=== PATIENT | male | born 1950 | race Caucasian/White ===

== ENCOUNTER 2021-02-20 21:41 | Emergency (ER) | payer OTHER, MEDICARE ==
--- OUTSIDE RECORDS SUMMARY | 2021-02-20 21:44 | XMS REPORT | Continuity of Care Document ---
:1950 Author Organization [facility] t Address [address] [place] [address] Care Team Providers Name Role Phone Sharpless Primary Care Physician Doctor Unassigned, Name Attending Clinician Unavailable Gabby Kirkland MD Attending Clinician Problems Condition Condition Condition Status Onset Resolution Last Treating Co mments Source Name Details Category Date Date Treatment Clinician Date SIRS SIRS Disease Active [facility]system[facility] inflammato inflammato 00:00: Me dical ry ry 00 Center response response syndrome) syndrome) Bandemia Bandemia Disease [facility] Oropharyng Oropharyng Disease Active [facility] - dysphagia dysphagia 00:00: Medi bora 00 Center Submandibu Submandibu Disease Active [facility] lar 03[facility] - abscess abscess [facility] Medical 00 Center Sore Sore Disease Active [facility] throat throat 03-21 [facility] Mass of Mass of Disease Active [facility] right right 03-21 [facility] - submandibu submandibu 00:00: Me dical lar region lar region 00 Ce nter Allergies, Adverse Reactions, Alerts This patient has no known allergies or adverse reactions. Social History Social Habit Start Date Stop Date Quantity Comments Source Sex Assigned At [facility] Cigarettes smoked 2016-03-22 2016-03-22 [facility] - current (pack per 00:00:00 00:00:00 Medical Center day) - Reported Cigarette 2016-03-22 2016-03-[address] [facility] - pack-[facility] 00:00:00 00:[facility]:00 [facility] Center Alcohol intake 2016-03-22 2016-03-22 [facility] (finding) Smoking Status Start Date Stop Date Source Current every day smoker 2016-03-22 00:00:00 [facility] Medications Ordered Filled Start Stop Current Ordering Indication Dosage Frequency Signature Comments Components Source Medication Medication Date Date Medication? Clinician (SIG) Name Name morphine Yes 15mg [id number] Take [address] [facility] (MSIR) 15 8-14 [id number] by mouth 3 [facility] - MG tablet 15:30: 3D (three) Medic al 46 times Center daily. Procedures This patient has no known procedures. Encounters Start End Encounter Admission Attending Care Care Encounter Source Date/Time Date/Time Type Type Clinicians Facility Department ID 2020-06-15 2020-06-15 Orders Doctor ANDERSON [id number] 00:00:00 00:00:00 Only Unassigned, JANET [id number] [place] [facility] [id number] 2020-06-03 2020-06-03 Office GREG Kirkland [id number] 09:57:34 10:26:27 Visit [facility] [id number] Surgical [id number] Specialti [id number] 198 [place] 2020-06-03 2020-06-03 Orders Doctor ANDERSON [id number] 00:00:00 00:00:00 Only Unassigned, JANET [id number] [place] [facility] [id number] Results This patient has no known results.
[2021-02-20] MEDS ORDERED: MORPHINE 4 MG/ML SYR ONE (23:31)
[2021-02-20] MEDS ORDERED: ONDANSETRON 4 MG/2 ML VIAL ONE (23:32)
[2021-02-20 23:54] LABS: Absolute Lymphocytes (CBC) 1.9 K/uL (0.7-4.9); Basophils % 0.7 % (0-1.3); Hematocrit 42.6 % (39.6-49.0); Lymphocytes % 16.1 % (15.3-44.8); MPV 10.3 fL (7.6-11.3); RBC Red Blood Cell Count 4.64 M/uL (4.33-5.43)
[2021-02-20 23:57] LABS: Protime INR 1.02
[2021-02-21 00:04] LABS: ALT/SGPT 26 U/L (12-78); AST/SGOT 23 U/L (15-37); Alkaline Phosphatase 91 U/L (45-117); BUN Blood Urea Nitrogen 9 mg/dL (7-18); Bicarbonate 30 mmol/L (21-32); Bilirubin Direct < 0.1 mg/dL (0-0.2); Bilirubin Total 0.4 mg/dL (0.2-1.0); Glucose Level 94 mg/dL (74-106); Potassium 3.9 mmol/L (3.5-5.1); Protein, Total 7.9 g/dL (6.4-8.2); Sodium Level 139 mmol/L (136-145)
--- NOTE | 2021-02-21 00:35 | ER ---
Nurse's Notes [facility] Name: Douglas Avina Age: 71 yrs Sex: Male : 1950 Arrival Date: 02/20/2021 Time: 21:43 Bed 16 Private MD: Diagnosis: Radiculopathy, cervical region;Cervical Degenerative Disease Presentation: 02/20 21:54 Chief complaint: Patient states: Had injury to my neck 4 months ago, my neck has always ca1 been hurting but not this bad. 3 days [employer], the pain has just been worse and I can't move my neck. Coronavirus screen: Client denies travel out of the [place] in the last 14 days. At this time, the client does not indicate any symptoms associated with coronavirus-19. Ebola Screen: Patient negative for fever greater than or equal to 101.5 degrees Fahrenheit, and additional compatible Ebola Virus Disease symptoms Patient denies exposure to infectious person. Patient denies travel to an Ebola-affected area in the 21 days before illness onset. No symptoms or risks identified at this time. Acute neurological deficit: none identified. Initial Sepsis Screen: Does the patient meet any 2 criteria? No. Patient's initial sepsis screen is negative. Does the patient have a suspected source of infection? No. Patient's initial sepsis screen is negative. Risk Assessment: Do you want to hurt yourself or someone else? Patient reports no desire to harm self or others. Onset of symptoms was February 20, 2021. 21:54 Method Of Arrival: Wheelchair ca1 21:54 Acuity: DARION 3 ca1 Historical: - Allergies: 21:57 No Known Allergies; ca1 - PMHx: 21:57 None; ca1 - Immunization history:: Client reports having NOT received the Covid vaccine. Flu vaccine is not up to date. - Social history:: Smoking status: Patient reports the use of cigarette tobacco products, smokes one pack cigarettes per day. Screenin:00 Abuse screen: Denies threats or abuse. Nutritional screening: No deficits noted. jb4 Tuberculosis screening: No symptoms or risk factors identified. Fall Risk None identified. Assessment: 22:50 General: Appears in no apparent distress. uncomfortable, Behavior is calm, cooperative, jb4 appropriate for age. Pain: Complains of pain in neck Pain does not radiate. Pain currently is 10 out of 10 on a pain scale. Neuro: Level of Consciousness is awake, alert, obeys commands, Oriented to person, place, time, situation. Cardiovascular: Patient's skin is warm and dry. Respiratory: Airway is patent Respiratory effort is even, unlabored, Respiratory pattern is regular, symmetrical. GI: No signs and/or symptoms were reported involving the gastrointestinal system. : No signs and/or symptoms were reported regarding the genitourinary system. EENT: No signs and/or symptoms were reported regarding the EENT system. Derm: Skin is intact, Skin is pink, warm \T\ dry. Musculoskeletal: Circulation, motion, and sensation intact. Range of motion: intact in all extremities. 02/21 00:00 Reassessment: Patient appears in no apparent distress at this time. Patient and/or jb4 family updated on plan of care and expected duration. Pain level reassessed. Patient is alert, oriented x 3, equal unlabored respirations, skin warm/dry/pink. 01:00 Reassessment: Patient appears in no apparent distress at this time. Patient and/or jb4 family updated on plan of care and expected duration. Pain level reassessed. Patient is alert, oriented x 3, equal unlabored respirations, skin warm/dry/pink. Vital Signs: 02/20 21:54 BP 174 / 90; Pulse 85; Resp 16 S; Temp 99.1(TE); Pulse Ox 96% on R/A; Weight 72.57 kg ca1 (R); Height 5 ft. 10 in. (177.80 cm) (R); Pain 9/10; 02/21 01:18 BP 151 / 92; Pulse 87; Resp 18; Pulse Ox 97% on R/A; jb4 02/20 21:54 Body Mass Index 22.96 (72.57 kg, 177.80 cm) ca1 ED Course: 02/20 21:43 Patient arrived in ED. es 21:56 Triage completed. ca1 21:57 Arm band placed on right wrist. ca1 22:27 Cleve Bennett MD is Attending Physician. mh7 23:00 Patient has correct armband on for positive identification. Bed in low position. Call jb4 light in reach. Side rails up X 1. Pulse ox on. NIBP on. 23:01 Douglas English RN is Primary Nurse. jb4 23:15 Initial lab(s) drawn, by me, sent to lab. Inserted saline lock: 18 gauge in left jb4 antecubital area, using aseptic technique. Blood collected. 23:41 CT C Spine In Process Unspecified. EDMS 02/21 00:32 Douglas Louie MD is Referral Physician. 7 01:19 No provider procedures requiring assistance completed. IV discontinued, intact, jb4 bleeding controlled, No redness/swelling at site. Administered Medications: 02/20 23:15 Drug: Zofran (Ondansetron) 4 mg Route: IVP; Site: left antecubital; jb4 23:45 Follow up: Response: No adverse reaction jb4 23:17 Drug: morphine 4 mg Route: IVP; Site: left antecubital; jb4 23:45 Follow up: Response: No adverse reaction; Marked relief of symptoms; Pain is decreased; [facility] RASS: Alert and Calm (0) Outcome: 02/21 00:35 Discharge ordered by . [facility] 01:20 Discharged to home via wheelchair, with family. [facility] 01:20 Condition: stable 01:20 Discharge instructions given to patient, Instructed on discharge instructions, follow up and referral plans. medication usage, Demonstrated understanding of instructions, follow-up care, medications, Prescriptions given X 1. 01:20 Patient left the ED. [facility] Signatures: Dispatcher [employer] Irma Heard James, RN RN [facility] Sanam Wong RN RN ca1 Holmes, Maurice, MD MD 7 Corrections: (The following items were deleted from the chart) 01:19 01:18 Abuse screen: Denies threats or abuse. [place] [id number] 19 01:18 Nutritional screening: No deficits noted. [place] [id number] 19 01:18 Tuberculosis screening: No symptoms or risk factors identified. [place] [id number] :19 01:18 Fall Risk None identified. [place] [id number]
--- NOTE | 2021-02-21 00:36 | EDPHYS ---
Physician Documentation [facility] Name: Douglas Avina Age: 71 yrs Sex: Male : 1950 Arrival Date: 02/20/2021 Time: 21:43 Bed 16 Private MD: ED Physician Cleve Bennett HPI: 02/20 22:20 This 71 yrs old Male presents to ER via Wheelchair with complaints of Neck mh7 Pain, <24hrs Old, Headache. 22:20 The patient or guardian complains of pain, that is chronic. The symptoms are located at mh7 the posterior neck. Onset: The symptoms/episode began/occurred 4 month(s) ago, and became worse 5 day(s) ago. Context: The problem was sustained at home, The neck injury/problem resulted from sleeping funny. Associated signs and symptoms: Pertinent negatives: chills, constipation, fever, headache, bladder incontinence, bowel incontinence, nausea, numbness, tingling, vomiting, weakness. The pain does not radiate. Modifying factors: The symptoms are alleviated by remaining still, the symptoms are aggravated by movement, pressure. Severity of symptoms: At their worst the symptoms were moderate, 4 day(s) ago, in the emergency department the symptoms are unchanged. The patient has experienced similar episodes in the past, multiple times. Historical: - Allergies: 21:57 No Known Allergies; ca1 - PMHx: 21:57 None; ca1 - Immunization history:: Client reports having NOT received the Covid vaccine. Flu vaccine is not up to date. - Social history:: Smoking status: Patient reports the use of cigarette tobacco products, smokes one pack cigarettes per day. ROS: 22:20 Constitutional: Negative for fever, chills, and weight loss, Eyes: Negative for injury, mh7 pain, redness, and discharge, ENT: Negative for injury, pain, and discharge, Cardiovascular: Negative for chest pain, palpitations, and edema, Respiratory: Negative for shortness of breath, cough, wheezing, and pleuritic chest pain, Abdomen/GI: Negative for abdominal pain, nausea, vomiting, diarrhea, and constipation, Back: Negative for injury and pain, : Negative for injury, bleeding, discharge, and swelling, MS/Extremity: Negative for injury and deformity, Skin: Negative for injury, rash, and discoloration, Neuro: Negative for headache, weakness, numbness, tingling, and seizure, Psych: Negative for depression, anxiety, suicide ideation, homicidal ideation, and hallucinations, Allergy/Immunology: Negative for hives, rash, and allergies, Endocrine: Negative for neck swelling, polydipsia, polyuria, polyphagia, and marked weight changes, Hematologic/Lymphatic: Negative for swollen nodes, abnormal bleeding, and unusual bruising. Exam: 22:20 Constitutional: This is a well developed, well nourished patient who is awake, alert, mh7 and in no acute distress. Head/Face: Normocephalic, atraumatic. Eyes: Pupils equal round and reactive to light, extra-ocular motions intact. Lids and lashes normal. Conjunctiva and sclera are non-icteric and not injected. Cornea within normal limits. Periorbital areas with no swelling, redness, or edema. ENT: Nares patent. No nasal discharge, no septal abnormalities noted. Tympanic membranes are normal and external auditory canals are clear. Oropharynx with no redness, swelling, or masses, exudates, or evidence of obstruction, uvula midline. Mucous membranes moist. 22:20 Chest/axilla: Normal chest wall appearance and motion. Nontender with no deformity. No lesions are appreciated. Cardiovascular: Regular rate and rhythm with a normal S1 and S2. No gallops, murmurs, or rubs. Normal PMI, no JVD. No pulse deficits. Respiratory: Lungs have equal breath sounds bilaterally, clear to auscultation and percussion. No rales, rhonchi or wheezes noted. No increased work of breathing, no retractions or nasal flaring. Abdomen/GI: Soft, non-tender, with normal bowel sounds. No distension or tympany. No guarding or rebound. No evidence of tenderness throughout. Back: No spinal tenderness. No costovertebral tenderness. Full range of motion. Skin: Warm, dry with normal turgor. Normal color with no rashes, no lesions, and no evidence of cellulitis. MS/ Extremity: Pulses equal, no cyanosis. Neurovascular intact. Full, normal range of motion. Neuro: Awake and alert, GCS 15, oriented to person, place, time, and situation. Cranial nerves II-XII grossly intact. Motor strength 5/5 in all extremities. Sensory grossly intact. Cerebellar exam normal. Normal gait. Psych: Awake, alert, with orientation to person, place and time. Behavior, mood, and affect are within normal limits. 22:20 Neck: External neck: tenderness, that is moderate, of the left mid cervical area and left trapezius, C-spine: no acute changes, Thyroid: appears normal, Trachea: is midline with no obvious abnormalities, ROM/movement: pain, that is moderate, with rotation to the left, with rotation to the right, Meningeal signs: are not present, nuchal rigidity, is not appreciated, Lymph nodes: no appreciated lymphadenopathy. Vital Signs: 21:54 BP 174 / 90; Pulse 85; Resp 16 S; Temp 99.1(TE); Pulse Ox 96% on R/A; Weight 72.57 kg ca1 (R); Height 5 ft. 10 in. (177.80 cm) (R); Pain 04/22; 02/21 01:18 BP 151 / 92; Pulse 87; Resp 18; Pulse Ox 97% on R/A; jb4 02/20 21:54 Body Mass Index 22.96 (72.57 kg, 177.80 cm) ca1 MDM: 00:31 Differential diagnosis: arthritis, C-Spine Fracture Cervical Disc Herniation Cervical mh7 Discogenic Pain Cervical Facet Syndrome Cervical Raiculopathy Cervical Spondylosis cervical strain, Osteoarthritis Spondylolisthesis Spondylosis torticollis. Data reviewed: vital signs, nurses notes, lab test result(s), CBC, electrolytes, radiologic studies, CT scan. Counseling: I had a detailed discussion with the patient and/or guardian regarding: the historical points, exam findings, and any diagnostic results supporting the discharge/admit diagnosis, the presence of at least one elevated blood pressure reading (>120/80) during this emergency department visit, lab results, radiology results, the need for outpatient follow up, a neurosurgeon, a hand touch up painter, to return to the emergency department if symptoms worsen or persist or if there are any questions or concerns that arise at home. Response to treatment: the patient's symptoms have markedly improved after treatment. 00:[address] [facility] 02/20 22:51 Order name: Basic Metabolic Panel; Complete Time: 00:10 [facility] 02/20 22:51 Order name: LFT's; Complete Time: 00:10 [facility] 02/20 22:51 Order name: Protime (+inr); Complete Time: 00:10 7 02/20 22:51 Order name: Ptt, Activated; Complete Time: 00:10 [facility] 02/20 23:43 Order name: CBC with Automated Diff; Complete Time: 00:10 EDMS 02/20 22:51 Order name: CT C Spine [facility] Administered Medications: 02/20 23:15 Drug: Zofran (Ondansetron) 4 mg Route: IVP; Site: left antecubital; 4 23:45 Follow up: Response: No adverse reaction jb4 23:17 Drug: morphine 4 mg Route: IVP; Site: left antecubital; jb4 23:45 Follow up: Response: No adverse reaction; Marked relief of symptoms; Pain is decreased; jb4 RASS: Alert and Calm (0) Disposition Summary: 02/21/21 00:35 Discharge Ordered Location: Home [facility] Problem: chronic [facility] Symptoms: have improved [facility] Condition: Stable [facility] Diagnosis - Radiculopathy, cervical region [facility] - Cervical Degenerative Disease [facility] Followup: [facility] - With: Private Physician - When: 1 - 2 days - Reason: Worsening of condition, Recheck today's complaints, Continuance of care, Re-evaluation by your physician Followup: [facility] - With: Douglas Louie MD - When: 1 - 2 days - Reason: Worsening of condition, Recheck today's complaints Discharge Instructions: - Discharge Summary Sheet [facility] - Degenerative Disk Disease 7 - Cervical Radiculopathy, [id number] [facility] Forms: - Medication Reconciliation Form [facility] - Thank You Letter [facility] - Antibiotic Education [facility] - Prescription Opioid Use [facility] Prescriptions: - methocarbamol 500 mg Oral tablet - take 1 tablet by ORAL route 4 times per day; 20 tablet; Refills: 0, Product [facility] Selection Permitted Signatures: Dispatcher [employer] EDDouglas Manuel RN RN jb4 Sanam Wong RN RN ca1 Holmes, Maurice, MD MD [facility] Corrections: (The following items were deleted from the chart) 23:43 22:51 CBC with Manual Differential+H.LAB.BRZ ordered. EDMS EDMS
[2021-02-21 01:32] VITALS: TEMP 99.1
[2021-02-21 01:34] VITALS: BP 151/92; O2SAT 97
--- NOTE | 2021-02-21 13:53 | RAD REPORT ---
EXAM DESCRIPTION: CT Cervical Spine Without Intravenous Contrast CLINICAL HISTORY: The patient is 71 years old and is Male; Pain;Radiculopathy TECHNIQUE: Axial computed tomography images of the cervical spine without intravenous contrast. Sa gittal and coronal reformatted images were created and reviewed. This CT exam was performed using o ne or more of the following dose reduction techniques: automated exposure control, adjustment of th e mA and/or kV according to patient size, and/or use of iterative reconstruction technique. COMPARISON: No relevant prior studies available. FINDINGS: Vertebrae: Unremarkable. No acute fracture. Discs/spinal canal/neural foramina: Moderate to severe left neural foraminal narrowing at C2-C3. Moderate spinal canal narrowing at C2-C3. Moderate to severe bilateral neural foraminal narrowing at C3-C4. Moderate spinal canal narrowing at C3-C4. Moderate to severe bilateral neural foraminal narrowing at C4-C5. Severe spinal canal narrowing at C4-C5. Moderate bilateral neural foraminal narrowing at C5-C6. Moderate spinal canal narrowing C5-6. Soft tissues: Unremarkable. IMPRESSION: No acute fracture or subluxation. Moderate to severe degenerative changes as described halle suarez. Electronically signed by: Peter Perera MD 02/21/2021 12:00 AM CDT Due to temporary technical issues with the PACS/Fluency reporting system, reports are being signed by the in house radiologist without review as a courtesy to ensure prompt reporting. The interpreting r adiologist is fully responsible for the content of the report.
== END 2021-02-21 01:20 | disposition home or self-care (01) ==
LOC: ER 21:41
DX: M54.12 Radiculopathy, cervical region (principal); M50.30 Other cervical disc degeneration, unspecified cervical region; F17.210 Nicotine dependence, cigarettes, uncomplicated
CPT/HCPCS: 85025; 80048; 36415; 85610; 80076; 85730; 72125; 96375; 96374; 99284; J2405